=== PATIENT | female | born 1960 | race Caucasian/White ===

== ENCOUNTER 2022-04-23 13:21 | Inpatient (IN) | payer OTHER ==
[2022-04-23 14:17] VITALS: BMI 25.6
[2022-04-23] MEDS ORDERED: NALOXONE HCL (KLOXXADO) 8 MG SPRAY NS PRN (16:23)
[2022-04-23] MEDS ORDERED: LOPERAMIDE HCL 2 MG CAPSULE PO PRN (16:23)
[2022-04-23] MEDS ORDERED: IBUPROFEN 400 MG TABLET (FP) PO PRN (16:23)
[2022-04-23] MEDS ORDERED: cloNIDine HCL 0.1 MG TABLET PO PRN (16:23)
[2022-04-23] MEDS ORDERED: POLYETHYLENE GLYCOL (HEALTHYLAX) 3350 17 GM PACKET PO PRN (16:23)
[2022-04-23] MEDS ORDERED: BISMUTH SUBSALICYLATE 524 MG/30 ML PO PRN (16:23)
[2022-04-23] MEDS ORDERED: MAGNESIUM HYDROX 2400MG/30ML ORAL SUSPENSION 30 ML CUP PO PRN (16:23)
[2022-04-23] MEDS ORDERED: ONDANSETRON *ODT* 4 MG TABLET SL PRN (16:23)
[2022-04-23] MEDS ORDERED: ACETAMINOPHEN 325 MG TABLET (FP) PO PRN ×2 (16:23)
[2022-04-23] MEDS ORDERED: DICYCLOMINE HCL 10 MG CAPSULE PO PRN (16:23)
[2022-04-23] MEDS ORDERED: BENZOCAINE/MENTHOL (CHLORASEPTIC ) LOZENGE MM PRN (16:23)
[2022-04-23] MEDS ORDERED: MAG HYDROX/AL HYDROX/SIMETH 30 ML UNIT-DOSE CUP PO PRN (16:23)
[2022-04-23] MEDS ORDERED: methaDONE HCL 10 MG TABLET (FOR DETOX USE ONLY) PO ONE (16:30)
[2022-04-23] MEDS ORDERED: methaDONE HCL 10 MG TABLET (FOR DETOX USE ONLY) ONE (16:46)
[2022-04-23] MEDS: NICOTINE 10 MG CARTRIDGE (INHALER) IH PRN ×2 (18:23→23:19)
[2022-04-23] MEDS ORDERED: MELATONIN 5 MG TABLETS PO SCH (22:00)
[2022-04-23] MEDS: THIAMINE HCL 100 MG TABLET (FP) PO SCH (22:44)
[2022-04-23] MEDS: hydrOXYzine PAMOATE 25 MG CAPSULE (FP) PO PRN (22:45)
[2022-04-23] MEDS: IBUPROFEN 600 MG TABLET (FP) PO PRN (22:45)
[2022-04-24] MEDS: NICOTINE 10 MG CARTRIDGE (INHALER) IH PRN ×3 (10:23→22:25)
[2022-04-24] MEDS: PRENATAL VITAMINS W/ FOLIC ACID TABLET (FP) PO SCH (10:23)
[2022-04-24] MEDS: IBUPROFEN 600 MG TABLET (FP) PO PRN (10:24)
[2022-04-24 13:54] LABS: HEMATOCRIT 37.8 % (32.4-45.2); HEMOGLOBIN 13.2 GM/dL (10.7-15.3); MCH 29.9 pg (25.7-33.7); MCHC 34.8 g/dl (32.0-36.0); MEAN CELL VOLUME 85.8 fl (80-96); MEAN PLT VOLUME 10.3 fl (7.5-11.1); PLATELET COUNT 77 10^3/uL (134-434); RBC 4.41 M/mm3 (3.60-5.2); RDW 15.7 % (11.6-15.6); WHITE BLOOD COUNT 3.9 K/mm3 (4.0-10.0)
[2022-04-24 14:41] LABS: CALCIUM 8.3 mg/dL (8.5-10.1)
[2022-04-24 14:42] LABS: ALBUMIN 3.3 g/dl (3.4-5.0); BLOOD UREA NITROGEN 18.6 mg/dL (7-18)
[2022-04-24 14:47] LABS: BILIRUBIN,TOTAL 0.4 mg/dL (0.2-1); TOT PROT 6.3 g/dl (6.4-8.2)
[2022-04-24] MEDS: MELATONIN 5 MG TABLETS PO SCH (22:24)
[2022-04-24] MEDS: THIAMINE HCL 100 MG TABLET (FP) PO SCH (22:24)
[2022-04-25] MEDS ORDERED: methaDONE HCL 10 MG TABLET (FOR DETOX USE ONLY) PO ONE (10:00)
[2022-04-25] MEDS: NICOTINE 10 MG CARTRIDGE (INHALER) IH PRN ×3 (10:18→22:28)
[2022-04-25] MEDS: METHOCARBAMOL 500 MG TABLET PO PRN (10:19)
[2022-04-25] MEDS: PRENATAL VITAMINS W/ FOLIC ACID TABLET (FP) PO SCH (10:19)
[2022-04-25] MEDS: MELATONIN 5 MG TABLETS PO SCH (22:26)
[2022-04-25] MEDS: THIAMINE HCL 100 MG TABLET (FP) PO SCH (22:27)
[2022-04-25] MEDS: hydrOXYzine PAMOATE 25 MG CAPSULE (FP) PO PRN (22:28)
[2022-04-26] MEDS: NICOTINE 10 MG CARTRIDGE (INHALER) IH PRN ×4 (05:32→22:16)
[2022-04-26] MEDS: PRENATAL VITAMINS W/ FOLIC ACID TABLET (FP) PO SCH (10:23)
[2022-04-26] MEDS: MELATONIN 5 MG TABLETS PO SCH (22:15)
[2022-04-26] MEDS: THIAMINE HCL 100 MG TABLET (FP) PO SCH (22:16)
[2022-04-26] MEDS: METHOCARBAMOL 500 MG TABLET PO PRN (22:16)
[2022-04-27] MEDS: NICOTINE 10 MG CARTRIDGE (INHALER) IH PRN ×3 (08:27→22:11)
[2022-04-27] MEDS ORDERED: methaDONE HCL 10 MG TABLET (FOR DETOX USE ONLY) PO ONE (10:00)
[2022-04-27] MEDS: PRENATAL VITAMINS W/ FOLIC ACID TABLET (FP) PO SCH (10:36)
[2022-04-27] MEDS: THIAMINE HCL 100 MG TABLET (FP) PO SCH (22:11)
[2022-04-27] MEDS: MELATONIN 5 MG TABLETS PO SCH (22:11)
[2022-04-28] MEDS: NICOTINE 10 MG CARTRIDGE (INHALER) IH PRN ×2 (05:30→12:21)
[2022-04-28 06:51] VITALS: RESP 16
[2022-04-28 10:36] VITALS: BP 107/57; PULSE 9; TEMP 98
[2022-04-28] MEDS: PRENATAL VITAMINS W/ FOLIC ACID TABLET (FP) PO SCH (10:36)
== END 2022-04-28 13:16 | disposition other institution (70) | DRG 773 ==
LOC: YASAS 13:21 → Y6N 16:22
PROVIDERS: ADMIT Allergy & Immunology; ATTEND Surgery
PROC: HZ2ZZZZ Detoxification Services for Substance Abuse Treatment (ICD-10-PCS; principal; 2022-04-23)
DX: F11.23 Opioid dependence with withdrawal (principal); F14.20 Cocaine dependence, uncomplicated; F17.210 Nicotine dependence, cigarettes, uncomplicated; F31.9 Bipolar disorder, unspecified; F19.282 Other psychoactive substance dependence with psychoactive substance-induced sleep disorder; F19.24 Other psychoactive substance dependence with psychoactive substance-induced mood disorder; Z62.810 Personal history of physical and sexual abuse in childhood; Z91.410 Personal history of adult physical and sexual abuse; Z86.69 Personal history of other diseases of the nervous system and sense organs; Z86.19 Personal history of other infectious and parasitic diseases; Z87.19 Personal history of other diseases of the digestive system; Z56.0 Unemployment, unspecified
CPT/HCPCS: 36415; 80053; 83036; 85027; 86780; 93005; 93010; C9803-CS; U0003; U0005

== ENCOUNTER 2022-04-28 13:22 | Inpatient (IN) | payer OTHER ==
[2022-04-28] MEDS ORDERED: P-EPHED 60MG/TRIPROLIDI 2.5MG TABLET PO PRN (14:37)
[2022-04-28] MEDS ORDERED: guaiFENesin 200 MG/10 ML 10 ML UNIT-DOSE CUPS PO PRN (14:37)
[2022-04-28] MEDS ORDERED: BENZOCAINE/MENTHOL (CHLORASEPTIC ) LOZENGE MM PRN (14:37)
[2022-04-28] MEDS ORDERED: POLYETHYLENE GLYCOL (HEALTHYLAX) 3350 17 GM PACKET PO PRN (14:37)
[2022-04-28] MEDS ORDERED: LOPERAMIDE HCL 2 MG CAPSULE PO PRN (14:37)
[2022-04-28] MEDS: AMMONIUM LACTATE 12% LOTION 225 GM BOTTLE TP SCH (17:21)
[2022-04-28] MEDS: NICOTINE 10 MG CARTRIDGE (INHALER) IH PRN (17:36)
[2022-04-28] MEDS: THIAMINE HCL 100 MG TABLET (FP) PO SCH (21:19)
[2022-04-28] MEDS: MELATONIN 5 MG TABLETS PO SCH (21:19)
[2022-04-28] MEDS: hydrOXYzine PAMOATE 25 MG CAPSULE (FP) PO PRN (21:20)
[2022-04-29] MEDS: PRENATAL VITAMINS W/ FOLIC ACID TABLET (FP) PO SCH (09:56)
[2022-04-29] MEDS: NICOTINE 10 MG CARTRIDGE (INHALER) IH PRN ×2 (09:56→19:12)
[2022-04-29] MEDS: NICOTINE 7 MG/24 HOURS TOPICAL PATCH TD SCH (09:57)
[2022-04-29] MEDS: AMMONIUM LACTATE 12% LOTION 225 GM BOTTLE TP SCH (09:59)
[2022-04-29] MEDS ORDERED: PNEUMOC 20-VAL CONJ-DIP CRM/PF 0.5 ML SYRINGE IM ONE (12:00)
[2022-04-29] MEDS ORDERED: FLU VACC QS2022-23(6MOS UP)/PF 60 MCG/0.5 ML SYRINGE IM ONE (12:00)
[2022-04-29] MEDS: THIAMINE HCL 100 MG TABLET (FP) PO SCH (22:03)
[2022-04-29] MEDS: MELATONIN 5 MG TABLETS PO SCH (22:03)
[2022-04-29] MEDS: hydrOXYzine PAMOATE 25 MG CAPSULE (FP) PO PRN (22:04)
[2022-04-30] MEDS: MAG HYDROX/AL HYDROX/SIMETH 30 ML UNIT-DOSE CUP PO PRN (06:44)
[2022-04-30] MEDS: NICOTINE 10 MG CARTRIDGE (INHALER) IH PRN ×2 (09:06→18:59)
[2022-04-30] MEDS: PRENATAL VITAMINS W/ FOLIC ACID TABLET (FP) PO SCH (10:08)
[2022-04-30] MEDS: QUEtiapine FUMARATE 25 MG TABLET PO SCH (10:08)
[2022-04-30] MEDS: hydrOXYzine PAMOATE 25 MG CAPSULE (FP) PO PRN ×2 (10:08→22:09)
[2022-04-30] MEDS: NICOTINE 7 MG/24 HOURS TOPICAL PATCH TD SCH (10:08)
[2022-04-30] MEDS: AMMONIUM LACTATE 12% LOTION 225 GM BOTTLE TP SCH (10:09)
[2022-04-30] MEDS: THIAMINE HCL 100 MG TABLET (FP) PO SCH (22:08)
[2022-04-30] MEDS: QUEtiapine FUMARATE 50 MG TABLET PO SCH (22:09)
[2022-04-30] MEDS: IBUPROFEN 400 MG TABLET (FP) PO PRN (23:33)
[2022-05-01] MEDS: ACETAMINOPHEN 325 MG TABLET (FP) PO PRN (00:30)
[2022-05-01] MEDS ORDERED: METHOCARBAMOL 500 MG TABLET PO ONE (02:32)
[2022-05-01] MEDS: NICOTINE 10 MG CARTRIDGE (INHALER) IH PRN ×3 (06:12→19:14)
[2022-05-01] MEDS: IBUPROFEN 400 MG TABLET (FP) PO PRN (06:13)
[2022-05-01] MEDS: NICOTINE 7 MG/24 HOURS TOPICAL PATCH TD SCH (10:21)
[2022-05-01] MEDS: PRENATAL VITAMINS W/ FOLIC ACID TABLET (FP) PO SCH (10:21)
[2022-05-01] MEDS: AMMONIUM LACTATE 12% LOTION 225 GM BOTTLE TP SCH (10:21)
[2022-05-01] MEDS: QUEtiapine FUMARATE 25 MG TABLET PO SCH (10:26)
[2022-05-01] MEDS ORDERED: MELATONIN 5 MG TABLETS PO PRN (11:06)
[2022-05-01] MEDS: hydrOXYzine PAMOATE 25 MG CAPSULE (FP) PO PRN ×2 (12:22→21:12)
[2022-05-01] MEDS: MELATONIN 5 MG TABLETS PO PRN (21:10)
[2022-05-01] MEDS: QUEtiapine FUMARATE 50 MG TABLET PO SCH (21:13)
[2022-05-01] MEDS: THIAMINE HCL 100 MG TABLET (FP) PO SCH (21:13)
[2022-05-02] MEDS: hydrOXYzine PAMOATE 25 MG CAPSULE (FP) PO PRN ×4 (03:55→21:22)
[2022-05-02] MEDS: IBUPROFEN 400 MG TABLET (FP) PO PRN (03:56)
[2022-05-02] MEDS: NICOTINE 10 MG CARTRIDGE (INHALER) IH PRN ×3 (07:02→19:41)
[2022-05-02] MEDS: PRENATAL VITAMINS W/ FOLIC ACID TABLET (FP) PO SCH (10:38)
[2022-05-02] MEDS: DIVALPROEX SODIUM 250 MG TABLET E.C. PO SCH ×2 (10:38→21:21)
[2022-05-02] MEDS: NICOTINE 7 MG/24 HOURS TOPICAL PATCH TD SCH (10:38)
[2022-05-02] MEDS: AMMONIUM LACTATE 12% LOTION 225 GM BOTTLE TP SCH (10:39)
[2022-05-02] MEDS: THIAMINE HCL 100 MG TABLET (FP) PO SCH (21:21)
[2022-05-02] MEDS: MELATONIN 5 MG TABLETS PO PRN (21:22)
[2022-05-02] MEDS ORDERED: traZODone HCL 50 MG TABLET (FP) PO SCH (22:00)
[2022-05-03] MEDS: hydrOXYzine PAMOATE 25 MG CAPSULE (FP) PO PRN ×4 (06:42→21:09)
[2022-05-03] MEDS: PRENATAL VITAMINS W/ FOLIC ACID TABLET (FP) PO SCH (10:28)
[2022-05-03] MEDS: DIVALPROEX SODIUM 250 MG TABLET E.C. PO SCH ×2 (10:28→21:08)
[2022-05-03] MEDS: NICOTINE 7 MG/24 HOURS TOPICAL PATCH TD SCH (10:29)
[2022-05-03] MEDS: NICOTINE 10 MG CARTRIDGE (INHALER) IH PRN ×2 (10:30→21:10)
[2022-05-03] MEDS: AMMONIUM LACTATE 12% LOTION 225 GM BOTTLE TP SCH (10:30)
[2022-05-03] MEDS: MAG HYDROX/AL HYDROX/SIMETH 30 ML UNIT-DOSE CUP PO PRN (11:00)
[2022-05-03] MEDS: THIAMINE HCL 100 MG TABLET (FP) PO SCH (21:08)
[2022-05-03] MEDS: MELATONIN 5 MG TABLETS PO PRN (21:09)
[2022-05-03] MEDS ORDERED: traZODone HCL 100 MG TABLET (FP) PO SCH (22:00)
[2022-05-04] MEDS: hydrOXYzine PAMOATE 25 MG CAPSULE (FP) PO PRN ×3 (06:36→21:16)
[2022-05-04] MEDS: PRENATAL VITAMINS W/ FOLIC ACID TABLET (FP) PO SCH (10:50)
[2022-05-04] MEDS: DIVALPROEX SODIUM 250 MG TABLET E.C. PO SCH ×2 (10:50→21:16)
[2022-05-04] MEDS: NICOTINE 10 MG CARTRIDGE (INHALER) IH PRN ×2 (10:52→19:19)
[2022-05-04] MEDS: AMMONIUM LACTATE 12% LOTION 225 GM BOTTLE TP SCH (10:53)
[2022-05-04] MEDS: NICOTINE 7 MG/24 HOURS TOPICAL PATCH TD SCH (10:53)
[2022-05-04] MEDS: busPIRone HCL 5 MG TABLET PO SCH ×2 (14:13→21:16)
[2022-05-04] MEDS ORDERED: BUPRENORPHINE/NALOXONE 2 MG/0.5 MG FILM PACKET SL ONE (15:26)
[2022-05-04] MEDS: COLLOIDAL OATMEAL 1 BAR EACH TP PRN (16:08)
[2022-05-04] MEDS: traZODone HCL 50 MG TABLET (FP) PO SCH (21:16)
[2022-05-04] MEDS: THIAMINE HCL 100 MG TABLET (FP) PO SCH (21:16)
[2022-05-04] MEDS: MELATONIN 5 MG TABLETS PO PRN (21:18)
[2022-05-05] MEDS: busPIRone HCL 5 MG TABLET PO SCH ×3 (07:14→21:15)
[2022-05-05] MEDS: hydrOXYzine PAMOATE 25 MG CAPSULE (FP) PO PRN ×2 (07:14→21:16)
[2022-05-05] MEDS: NICOTINE 10 MG CARTRIDGE (INHALER) IH PRN ×2 (07:15→20:20)
[2022-05-05] MEDS ORDERED: BUPRENORPHINE/NALOXONE 2 MG/0.5 MG FILM PACKET SL SCH (10:00)
[2022-05-05] MEDS: PRENATAL VITAMINS W/ FOLIC ACID TABLET (FP) PO SCH (10:17)
[2022-05-05] MEDS: DIVALPROEX SODIUM 250 MG TABLET E.C. PO SCH ×2 (10:17→21:15)
[2022-05-05] MEDS: NICOTINE 7 MG/24 HOURS TOPICAL PATCH TD SCH (10:17)
[2022-05-05] MEDS: AMMONIUM LACTATE 12% LOTION 225 GM BOTTLE TP SCH (10:20)
[2022-05-05] MEDS: traZODone HCL 50 MG TABLET (FP) PO SCH (21:14)
[2022-05-05] MEDS: THIAMINE HCL 100 MG TABLET (FP) PO SCH (21:15)
[2022-05-06] MEDS: busPIRone HCL 5 MG TABLET PO SCH ×3 (07:19→22:25)
[2022-05-06] MEDS: NICOTINE 10 MG CARTRIDGE (INHALER) IH PRN ×3 (07:19→22:26)
[2022-05-06] MEDS: hydrOXYzine PAMOATE 25 MG CAPSULE (FP) PO PRN ×2 (07:20→22:25)
[2022-05-06] MEDS: BUPRENORPHINE/NALOXONE 2 MG/0.5 MG FILM PACKET SL SCH (07:20)
[2022-05-06] MEDS: PRENATAL VITAMINS W/ FOLIC ACID TABLET (FP) PO SCH (10:55)
[2022-05-06] MEDS: DIVALPROEX SODIUM 250 MG TABLET E.C. PO SCH ×2 (10:55→22:24)
[2022-05-06] MEDS: NICOTINE 7 MG/24 HOURS TOPICAL PATCH TD SCH (10:56)
[2022-05-06] MEDS: AMMONIUM LACTATE 12% LOTION 225 GM BOTTLE TP SCH (10:57)
[2022-05-06] MEDS: traZODone HCL 50 MG TABLET (FP) PO SCH (22:23)
[2022-05-06] MEDS: THIAMINE HCL 100 MG TABLET (FP) PO SCH (22:24)
[2022-05-07] MEDS: busPIRone HCL 5 MG TABLET PO SCH ×3 (06:54→23:06)
[2022-05-07] MEDS: hydrOXYzine PAMOATE 25 MG CAPSULE (FP) PO PRN ×2 (06:54→22:09)
[2022-05-07] MEDS: BUPRENORPHINE/NALOXONE 2 MG/0.5 MG FILM PACKET SL SCH (06:54)
[2022-05-07] MEDS: AMMONIUM LACTATE 12% LOTION 225 GM BOTTLE TP SCH (09:49)
[2022-05-07] MEDS: PRENATAL VITAMINS W/ FOLIC ACID TABLET (FP) PO SCH (09:50)
[2022-05-07] MEDS: NICOTINE 7 MG/24 HOURS TOPICAL PATCH TD SCH (09:50)
[2022-05-07] MEDS: DIVALPROEX SODIUM 250 MG TABLET E.C. PO SCH ×2 (09:50→22:08)
[2022-05-07] MEDS: NICOTINE 10 MG CARTRIDGE (INHALER) IH PRN ×2 (14:06→22:08)
[2022-05-07] MEDS: MELATONIN 5 MG TABLETS PO PRN (22:08)
[2022-05-07] MEDS: traZODone HCL 50 MG TABLET (FP) PO SCH (22:08)
[2022-05-07] MEDS: THIAMINE HCL 100 MG TABLET (FP) PO SCH (22:08)
[2022-05-08] MEDS: hydrOXYzine PAMOATE 25 MG CAPSULE (FP) PO PRN ×3 (07:07→21:14)
[2022-05-08] MEDS: busPIRone HCL 5 MG TABLET PO SCH ×3 (07:07→21:14)
[2022-05-08] MEDS: BUPRENORPHINE/NALOXONE 2 MG/0.5 MG FILM PACKET SL SCH (07:07)
[2022-05-08] MEDS: DIVALPROEX SODIUM 250 MG TABLET E.C. PO SCH ×2 (10:31→21:13)
[2022-05-08] MEDS: NICOTINE 7 MG/24 HOURS TOPICAL PATCH TD SCH (10:31)
[2022-05-08] MEDS: PRENATAL VITAMINS W/ FOLIC ACID TABLET (FP) PO SCH (10:31)
[2022-05-08] MEDS: NICOTINE 10 MG CARTRIDGE (INHALER) IH PRN (10:32)
[2022-05-08] MEDS: AMMONIUM LACTATE 12% LOTION 225 GM BOTTLE TP SCH (10:33)
[2022-05-08] MEDS: traZODone HCL 50 MG TABLET (FP) PO SCH (21:12)
[2022-05-08] MEDS: THIAMINE HCL 100 MG TABLET (FP) PO SCH (21:14)
[2022-05-09] MEDS: HYDROCORTISONE 1% TOPICAL CREAM 30 GM TUBE TP PRN ×2 (06:12→10:38)
[2022-05-09] MEDS: hydrOXYzine PAMOATE 25 MG CAPSULE (FP) PO PRN ×2 (06:13→10:37)
[2022-05-09] MEDS: BUPRENORPHINE/NALOXONE 2 MG/0.5 MG FILM PACKET SL SCH (06:13)
[2022-05-09] MEDS: busPIRone HCL 5 MG TABLET PO SCH ×3 (06:14→21:12)
[2022-05-09] MEDS: DIVALPROEX SODIUM 250 MG TABLET E.C. PO SCH ×2 (10:37→21:15)
[2022-05-09] MEDS: PRENATAL VITAMINS W/ FOLIC ACID TABLET (FP) PO SCH (10:37)
[2022-05-09] MEDS: NICOTINE 7 MG/24 HOURS TOPICAL PATCH TD SCH (10:38)
[2022-05-09] MEDS: NICOTINE 10 MG CARTRIDGE (INHALER) IH PRN (10:39)
[2022-05-09] MEDS: AMMONIUM LACTATE 12% LOTION 225 GM BOTTLE TP SCH (10:44)
[2022-05-09] MEDS: THIAMINE HCL 100 MG TABLET (FP) PO SCH (21:11)
[2022-05-09] MEDS: MELATONIN 5 MG TABLETS PO PRN (21:12)
[2022-05-09] MEDS: traZODone HCL 50 MG TABLET (FP) PO SCH (21:12)
[2022-05-10] MEDS: BUPRENORPHINE/NALOXONE 2 MG/0.5 MG FILM PACKET SL SCH (06:14)
[2022-05-10] MEDS: DIVALPROEX SODIUM 250 MG TABLET E.C. PO SCH ×2 (06:14→21:42)
[2022-05-10] MEDS: busPIRone HCL 5 MG TABLET PO SCH ×3 (06:14→21:39)
[2022-05-10] MEDS: hydrOXYzine PAMOATE 25 MG CAPSULE (FP) PO PRN ×2 (06:16→09:52)
[2022-05-10] MEDS: PRENATAL VITAMINS W/ FOLIC ACID TABLET (FP) PO SCH (09:51)
[2022-05-10] MEDS: NICOTINE 7 MG/24 HOURS TOPICAL PATCH TD SCH (09:52)
[2022-05-10] MEDS: AMMONIUM LACTATE 12% LOTION 225 GM BOTTLE TP SCH (09:53)
[2022-05-10] MEDS: NICOTINE 10 MG CARTRIDGE (INHALER) IH PRN ×2 (09:53→21:37)
[2022-05-10] MEDS: HYDROCORTISONE 1% TOPICAL CREAM 30 GM TUBE TP PRN (09:54)
[2022-05-10] MEDS: METHOCARBAMOL 500 MG TABLET PO PRN ×2 (14:57→21:38)
[2022-05-10] MEDS: traZODone HCL 50 MG TABLET (FP) PO SCH (21:39)
[2022-05-10] MEDS: THIAMINE HCL 100 MG TABLET (FP) PO SCH (21:39)
[2022-05-11] MEDS: busPIRone HCL 5 MG TABLET PO SCH ×3 (06:42→21:28)
[2022-05-11] MEDS: BUPRENORPHINE/NALOXONE 2 MG/0.5 MG FILM PACKET SL SCH (06:42)
[2022-05-11] MEDS: NICOTINE 10 MG CARTRIDGE (INHALER) IH PRN ×2 (06:42→21:35)
[2022-05-11] MEDS: DIVALPROEX SODIUM 250 MG TABLET E.C. PO SCH ×2 (06:42→21:28)
[2022-05-11] MEDS: PRENATAL VITAMINS W/ FOLIC ACID TABLET (FP) PO SCH (10:24)
[2022-05-11] MEDS: METHOCARBAMOL 500 MG TABLET PO PRN ×2 (10:25→21:29)
[2022-05-11] MEDS: AMMONIUM LACTATE 12% LOTION 225 GM BOTTLE TP SCH (10:25)
[2022-05-11] MEDS: HYDROCORTISONE 1% TOPICAL CREAM 30 GM TUBE TP PRN (10:25)
[2022-05-11] MEDS: NICOTINE 7 MG/24 HOURS TOPICAL PATCH TD SCH (10:27)
[2022-05-11] MEDS: traZODone HCL 50 MG TABLET (FP) PO SCH (21:27)
[2022-05-11] MEDS: THIAMINE HCL 100 MG TABLET (FP) PO SCH (21:27)
[2022-05-11] MEDS: hydrOXYzine PAMOATE 25 MG CAPSULE (FP) PO PRN (21:29)
[2022-05-11] MEDS: MELATONIN 5 MG TABLETS PO PRN (21:34)
[2022-05-12] MEDS: busPIRone HCL 5 MG TABLET PO SCH ×3 (06:40→21:17)
[2022-05-12] MEDS: DIVALPROEX SODIUM 250 MG TABLET E.C. PO SCH ×2 (06:40→21:43)
[2022-05-12] MEDS: BUPRENORPHINE/NALOXONE 2 MG/0.5 MG FILM PACKET SL SCH (06:40)
[2022-05-12] MEDS: METHOCARBAMOL 500 MG TABLET PO PRN ×2 (06:42→21:19)
[2022-05-12] MEDS: NICOTINE 7 MG/24 HOURS TOPICAL PATCH TD SCH (10:18)
[2022-05-12] MEDS: AMMONIUM LACTATE 12% LOTION 225 GM BOTTLE TP SCH (10:18)
[2022-05-12] MEDS: PRENATAL VITAMINS W/ FOLIC ACID TABLET (FP) PO SCH (10:18)
[2022-05-12] MEDS: THIAMINE HCL 100 MG TABLET (FP) PO SCH (21:17)
[2022-05-12] MEDS: traZODone HCL 50 MG TABLET (FP) PO SCH (21:17)
[2022-05-12] MEDS: hydrOXYzine PAMOATE 25 MG CAPSULE (FP) PO PRN (21:17)
[2022-05-12] MEDS: MELATONIN 5 MG TABLETS PO PRN (21:19)
[2022-05-13] MEDS: DIVALPROEX SODIUM 250 MG TABLET E.C. PO SCH ×2 (05:58→22:06)
[2022-05-13] MEDS: busPIRone HCL 5 MG TABLET PO SCH ×3 (05:58→21:47)
[2022-05-13] MEDS: BUPRENORPHINE/NALOXONE 2 MG/0.5 MG FILM PACKET SL SCH (05:58)
[2022-05-13] MEDS: NICOTINE 7 MG/24 HOURS TOPICAL PATCH TD SCH (10:06)
[2022-05-13] MEDS: hydrOXYzine PAMOATE 25 MG CAPSULE (FP) PO PRN ×2 (10:06→21:47)
[2022-05-13] MEDS: PRENATAL VITAMINS W/ FOLIC ACID TABLET (FP) PO SCH (10:06)
[2022-05-13] MEDS: AMMONIUM LACTATE 12% LOTION 225 GM BOTTLE TP SCH (10:06)
[2022-05-13] MEDS: traZODone HCL 50 MG TABLET (FP) PO SCH (21:46)
[2022-05-13] MEDS: THIAMINE HCL 100 MG TABLET (FP) PO SCH (21:46)
[2022-05-13] MEDS: METHOCARBAMOL 500 MG TABLET PO PRN (21:47)
[2022-05-13] MEDS: NICOTINE 10 MG CARTRIDGE (INHALER) IH PRN (21:48)
[2022-05-13] MEDS: MELATONIN 5 MG TABLETS PO PRN (21:48)
[2022-05-14] MEDS: busPIRone HCL 5 MG TABLET PO SCH ×3 (06:57→21:50)
[2022-05-14] MEDS: DIVALPROEX SODIUM 250 MG TABLET E.C. PO SCH ×2 (06:57→21:52)
[2022-05-14] MEDS: BUPRENORPHINE/NALOXONE 2 MG/0.5 MG FILM PACKET SL SCH (06:57)
[2022-05-14] MEDS: PRENATAL VITAMINS W/ FOLIC ACID TABLET (FP) PO SCH (09:47)
[2022-05-14] MEDS: NICOTINE 7 MG/24 HOURS TOPICAL PATCH TD SCH (09:47)
[2022-05-14] MEDS: HYDROCORTISONE 1% TOPICAL CREAM 30 GM TUBE TP PRN (09:48)
[2022-05-14] MEDS: AMMONIUM LACTATE 12% LOTION 225 GM BOTTLE TP SCH (09:49)
[2022-05-14] MEDS: NICOTINE 10 MG CARTRIDGE (INHALER) IH PRN (14:22)
[2022-05-14] MEDS: METHOCARBAMOL 500 MG TABLET PO PRN (21:49)
[2022-05-14] MEDS: THIAMINE HCL 100 MG TABLET (FP) PO SCH (21:50)
[2022-05-14] MEDS: hydrOXYzine PAMOATE 25 MG CAPSULE (FP) PO PRN (21:50)
[2022-05-14] MEDS: traZODone HCL 50 MG TABLET (FP) PO SCH (21:50)
[2022-05-14] MEDS: MELATONIN 5 MG TABLETS PO PRN (21:52)
[2022-05-15] MEDS: busPIRone HCL 5 MG TABLET PO SCH ×3 (06:41→21:22)
[2022-05-15] MEDS: DIVALPROEX SODIUM 250 MG TABLET E.C. PO SCH ×2 (06:42→21:23)
[2022-05-15] MEDS: BUPRENORPHINE/NALOXONE 2 MG/0.5 MG FILM PACKET SL SCH (06:42)
[2022-05-15] MEDS: NICOTINE 10 MG CARTRIDGE (INHALER) IH PRN (06:44)
[2022-05-15] MEDS: PRENATAL VITAMINS W/ FOLIC ACID TABLET (FP) PO SCH (10:23)
[2022-05-15] MEDS: NICOTINE 7 MG/24 HOURS TOPICAL PATCH TD SCH (10:24)
[2022-05-15] MEDS: HYDROCORTISONE 1% TOPICAL CREAM 30 GM TUBE TP PRN (10:25)
[2022-05-15] MEDS: AMMONIUM LACTATE 12% LOTION 225 GM BOTTLE TP SCH (10:25)
[2022-05-15] MEDS: HYDROCHLOROTHIAZIDE 25 MG TABLET (FP) PO SCH (14:44)
[2022-05-15] MEDS: traZODone HCL 50 MG TABLET (FP) PO SCH (21:21)
[2022-05-15] MEDS: THIAMINE HCL 100 MG TABLET (FP) PO SCH (21:22)
[2022-05-15] MEDS: MELATONIN 5 MG TABLETS PO PRN (21:24)
[2022-05-15] MEDS: METHOCARBAMOL 500 MG TABLET PO PRN (22:45)
[2022-05-15] MEDS: hydrOXYzine PAMOATE 25 MG CAPSULE (FP) PO PRN (22:45)
[2022-05-16] MEDS: BUPRENORPHINE/NALOXONE 2 MG/0.5 MG FILM PACKET SL SCH (06:55)
[2022-05-16] MEDS: DIVALPROEX SODIUM 250 MG TABLET E.C. PO SCH ×2 (06:55→21:03)
[2022-05-16] MEDS: busPIRone HCL 5 MG TABLET PO SCH ×3 (06:55→21:03)
[2022-05-16] MEDS: PRENATAL VITAMINS W/ FOLIC ACID TABLET (FP) PO SCH (10:26)
[2022-05-16] MEDS: NICOTINE 7 MG/24 HOURS TOPICAL PATCH TD SCH (10:26)
[2022-05-16] MEDS: HYDROCHLOROTHIAZIDE 25 MG TABLET (FP) PO SCH (10:26)
[2022-05-16] MEDS: AMMONIUM LACTATE 12% LOTION 225 GM BOTTLE TP SCH (10:26)
[2022-05-16] MEDS: THIAMINE HCL 100 MG TABLET (FP) PO SCH (21:03)
[2022-05-16] MEDS: traZODone HCL 50 MG TABLET (FP) PO SCH (21:03)
[2022-05-16] MEDS: hydrOXYzine PAMOATE 25 MG CAPSULE (FP) PO PRN (22:03)
[2022-05-16] MEDS: MELATONIN 5 MG TABLETS PO PRN (22:03)
[2022-05-16] MEDS: METHOCARBAMOL 500 MG TABLET PO PRN (22:03)
[2022-05-17] MEDS: busPIRone HCL 5 MG TABLET PO SCH ×3 (05:57→23:54)
[2022-05-17] MEDS: DIVALPROEX SODIUM 250 MG TABLET E.C. PO SCH ×2 (05:58→23:54)
[2022-05-17] MEDS: BUPRENORPHINE/NALOXONE 2 MG/0.5 MG FILM PACKET SL SCH (05:58)
[2022-05-17] MEDS: PRENATAL VITAMINS W/ FOLIC ACID TABLET (FP) PO SCH (09:46)
[2022-05-17] MEDS: HYDROCHLOROTHIAZIDE 25 MG TABLET (FP) PO SCH (09:47)
[2022-05-17] MEDS: ACETAMINOPHEN 325 MG TABLET (FP) PO PRN (09:47)
[2022-05-17] MEDS: NICOTINE 7 MG/24 HOURS TOPICAL PATCH TD SCH (09:47)
[2022-05-17] MEDS: AMMONIUM LACTATE 12% LOTION 225 GM BOTTLE TP SCH (09:47)
[2022-05-17] MEDS: traZODone HCL 50 MG TABLET (FP) PO SCH (23:54)
[2022-05-17] MEDS: THIAMINE HCL 100 MG TABLET (FP) PO SCH (23:54)
[2022-05-18] MEDS: METHOCARBAMOL 500 MG TABLET PO PRN (02:07)
[2022-05-18] MEDS: hydrOXYzine PAMOATE 25 MG CAPSULE (FP) PO PRN (02:07)
[2022-05-18] MEDS: MELATONIN 5 MG TABLETS PO PRN ×2 (02:09→22:16)
[2022-05-18] MEDS: BUPRENORPHINE/NALOXONE 2 MG/0.5 MG FILM PACKET SL SCH (06:42)
[2022-05-18] MEDS: busPIRone HCL 5 MG TABLET PO SCH ×3 (06:43→22:12)
[2022-05-18] MEDS: DIVALPROEX SODIUM 250 MG TABLET E.C. PO SCH ×2 (06:43→22:14)
[2022-05-18] MEDS: CEPHALEXIN MONOHYDRATE 500 MG CAPSULE (UD) PO SCH ×2 (09:46→22:13)
[2022-05-18] MEDS: NICOTINE 7 MG/24 HOURS TOPICAL PATCH TD SCH (09:46)
[2022-05-18] MEDS: PRENATAL VITAMINS W/ FOLIC ACID TABLET (FP) PO SCH (09:46)
[2022-05-18] MEDS: AMMONIUM LACTATE 12% LOTION 225 GM BOTTLE TP SCH (09:47)
[2022-05-18] MEDS: NICOTINE 10 MG CARTRIDGE (INHALER) IH PRN (09:48)
[2022-05-18] MEDS: THIAMINE HCL 100 MG TABLET (FP) PO SCH (22:13)
[2022-05-18] MEDS: traZODone HCL 50 MG TABLET (FP) PO SCH (22:13)
[2022-05-18] MEDS: MAG HYDROX/AL HYDROX/SIMETH 30 ML UNIT-DOSE CUP PO PRN (22:15)
[2022-05-19] MEDS: METHOCARBAMOL 500 MG TABLET PO PRN ×2 (01:57→21:19)
[2022-05-19] MEDS: busPIRone HCL 5 MG TABLET PO SCH ×3 (06:11→21:18)
[2022-05-19] MEDS: BUPRENORPHINE/NALOXONE 2 MG/0.5 MG FILM PACKET SL SCH (06:12)
[2022-05-19] MEDS: DIVALPROEX SODIUM 250 MG TABLET E.C. PO SCH ×2 (06:12→21:17)
[2022-05-19] MEDS: PRENATAL VITAMINS W/ FOLIC ACID TABLET (FP) PO SCH (09:55)
[2022-05-19] MEDS: CEPHALEXIN MONOHYDRATE 500 MG CAPSULE (UD) PO SCH ×2 (09:56→21:17)
[2022-05-19] MEDS: AMMONIUM LACTATE 12% LOTION 225 GM BOTTLE TP SCH (09:56)
[2022-05-19] MEDS: NICOTINE 7 MG/24 HOURS TOPICAL PATCH TD SCH (09:56)
[2022-05-19] MEDS: traZODone HCL 50 MG TABLET (FP) PO SCH (21:17)
[2022-05-19] MEDS: hydrOXYzine PAMOATE 25 MG CAPSULE (FP) PO PRN (21:17)
[2022-05-19] MEDS: THIAMINE HCL 100 MG TABLET (FP) PO SCH (21:17)
[2022-05-19] MEDS: ACETAMINOPHEN 325 MG TABLET (FP) PO PRN (21:18)
[2022-05-19] MEDS: MELATONIN 5 MG TABLETS PO PRN (21:22)
[2022-05-19] MEDS: MAG HYDROX/AL HYDROX/SIMETH 30 ML UNIT-DOSE CUP PO PRN (22:32)
[2022-05-20] MEDS: DIVALPROEX SODIUM 250 MG TABLET E.C. PO SCH ×2 (06:47→21:58)
[2022-05-20] MEDS: busPIRone HCL 5 MG TABLET PO SCH ×3 (06:47→21:58)
[2022-05-20] MEDS: NICOTINE 10 MG CARTRIDGE (INHALER) IH PRN ×4 (06:48→21:57)
[2022-05-20] MEDS: BUPRENORPHINE/NALOXONE 2 MG/0.5 MG FILM PACKET SL SCH (06:49)
[2022-05-20] MEDS: PRENATAL VITAMINS W/ FOLIC ACID TABLET (FP) PO SCH (10:38)
[2022-05-20] MEDS: NICOTINE 7 MG/24 HOURS TOPICAL PATCH TD SCH (10:38)
[2022-05-20] MEDS: CEPHALEXIN MONOHYDRATE 500 MG CAPSULE (UD) PO SCH ×2 (10:38→21:58)
[2022-05-20] MEDS: AMMONIUM LACTATE 12% LOTION 225 GM BOTTLE TP SCH (10:39)
[2022-05-20] MEDS: COLLOIDAL OATMEAL 1 BAR EACH TP PRN (10:40)
[2022-05-20] MEDS: traZODone HCL 50 MG TABLET (FP) PO SCH (21:58)
[2022-05-20] MEDS: METHOCARBAMOL 500 MG TABLET PO PRN (21:58)
[2022-05-20] MEDS: THIAMINE HCL 100 MG TABLET (FP) PO SCH (21:58)
[2022-05-21] MEDS: MELATONIN 5 MG TABLETS PO PRN (01:07)
[2022-05-21] MEDS: busPIRone HCL 5 MG TABLET PO SCH ×3 (06:57→21:38)
[2022-05-21] MEDS: DIVALPROEX SODIUM 250 MG TABLET E.C. PO SCH ×2 (06:57→21:38)
[2022-05-21] MEDS: BUPRENORPHINE/NALOXONE 2 MG/0.5 MG FILM PACKET SL SCH (06:57)
[2022-05-21] MEDS: NICOTINE 7 MG/24 HOURS TOPICAL PATCH TD SCH (10:13)
[2022-05-21] MEDS: PRENATAL VITAMINS W/ FOLIC ACID TABLET (FP) PO SCH (10:13)
[2022-05-21] MEDS: AMMONIUM LACTATE 12% LOTION 225 GM BOTTLE TP SCH (10:14)
[2022-05-21] MEDS: CEPHALEXIN MONOHYDRATE 500 MG CAPSULE (UD) PO SCH ×2 (10:14→21:38)
[2022-05-21] MEDS: NICOTINE 10 MG CARTRIDGE (INHALER) IH PRN (10:14)
[2022-05-21] MEDS: METHOCARBAMOL 500 MG TABLET PO PRN (21:37)
[2022-05-21] MEDS: traZODone HCL 50 MG TABLET (FP) PO SCH (21:37)
[2022-05-21] MEDS: THIAMINE HCL 100 MG TABLET (FP) PO SCH (21:37)
[2022-05-21] MEDS: hydrOXYzine PAMOATE 25 MG CAPSULE (FP) PO PRN (21:41)
[2022-05-22] MEDS: DIVALPROEX SODIUM 250 MG TABLET E.C. PO SCH ×2 (06:42→21:39)
[2022-05-22] MEDS: busPIRone HCL 5 MG TABLET PO SCH ×3 (06:42→21:39)
[2022-05-22] MEDS: BUPRENORPHINE/NALOXONE 2 MG/0.5 MG FILM PACKET SL SCH (06:42)
[2022-05-22] MEDS: NICOTINE 10 MG CARTRIDGE (INHALER) IH PRN (09:50)
[2022-05-22] MEDS: PRENATAL VITAMINS W/ FOLIC ACID TABLET (FP) PO SCH (09:50)
[2022-05-22] MEDS: NICOTINE 7 MG/24 HOURS TOPICAL PATCH TD SCH (09:50)
[2022-05-22] MEDS: CEPHALEXIN MONOHYDRATE 500 MG CAPSULE (UD) PO SCH ×2 (09:50→21:39)
[2022-05-22] MEDS: HYDROCORTISONE 1% TOPICAL CREAM 30 GM TUBE TP PRN (09:50)
[2022-05-22] MEDS: hydrOXYzine PAMOATE 25 MG CAPSULE (FP) PO PRN (09:51)
[2022-05-22] MEDS: AMMONIUM LACTATE 12% LOTION 225 GM BOTTLE TP SCH (09:54)
[2022-05-22] MEDS: LIDOCAINE 5% TOPICAL PATCH TP SCH (12:04)
[2022-05-22] MEDS: traZODone HCL 50 MG TABLET (FP) PO SCH (21:39)
[2022-05-22] MEDS: LIDOCAINE PATCH REMOVAL MC SCH (21:39)
[2022-05-22] MEDS: THIAMINE HCL 100 MG TABLET (FP) PO SCH (21:39)
[2022-05-22] MEDS: MELATONIN 5 MG TABLETS PO PRN (22:44)
[2022-05-22] MEDS: METHOCARBAMOL 500 MG TABLET PO PRN (22:44)
[2022-05-23] MEDS: busPIRone HCL 5 MG TABLET PO SCH ×3 (06:37→21:48)
[2022-05-23] MEDS: BUPRENORPHINE/NALOXONE 4 MG/1 MG FILM PACKET SL SCH (06:37)
[2022-05-23] MEDS: MAGNESIUM HYDROX 2400MG/30ML ORAL SUSPENSION 30 ML CUP PO PRN (06:38)
[2022-05-23] MEDS: DIVALPROEX SODIUM 250 MG TABLET E.C. PO SCH ×2 (06:39→22:08)
[2022-05-23 07:31] VITALS: RESP 16
[2022-05-23] MEDS: hydrOXYzine PAMOATE 25 MG CAPSULE (FP) PO PRN ×2 (09:41→21:48)
[2022-05-23] MEDS: PRENATAL VITAMINS W/ FOLIC ACID TABLET (FP) PO SCH (09:41)
[2022-05-23] MEDS: CEPHALEXIN MONOHYDRATE 500 MG CAPSULE (UD) PO SCH ×2 (09:41→21:48)
[2022-05-23] MEDS: NICOTINE 10 MG CARTRIDGE (INHALER) IH PRN ×3 (09:43→21:48)
[2022-05-23] MEDS: NICOTINE 7 MG/24 HOURS TOPICAL PATCH TD SCH (09:44)
[2022-05-23] MEDS: LIDOCAINE 5% TOPICAL PATCH TP SCH (09:45)
[2022-05-23] MEDS: AMMONIUM LACTATE 12% LOTION 225 GM BOTTLE TP SCH (09:45)
[2022-05-23] MEDS: MELATONIN 5 MG TABLETS PO PRN (21:47)
[2022-05-23] MEDS: traZODone HCL 50 MG TABLET (FP) PO SCH (21:48)
[2022-05-23] MEDS: THIAMINE HCL 100 MG TABLET (FP) PO SCH (21:48)
[2022-05-23] MEDS: METHOCARBAMOL 500 MG TABLET PO PRN (21:48)
[2022-05-23] MEDS: LIDOCAINE PATCH REMOVAL MC SCH (21:58)
[2022-05-24] MEDS: MAGNESIUM HYDROX 2400MG/30ML ORAL SUSPENSION 30 ML CUP PO PRN (04:42)
[2022-05-24] MEDS: NICOTINE 10 MG CARTRIDGE (INHALER) IH PRN ×3 (06:00→21:34)
[2022-05-24] MEDS: busPIRone HCL 5 MG TABLET PO SCH ×3 (06:01→21:30)
[2022-05-24] MEDS: BUPRENORPHINE/NALOXONE 4 MG/1 MG FILM PACKET SL SCH (06:01)
[2022-05-24] MEDS: DIVALPROEX SODIUM 250 MG TABLET E.C. PO SCH ×2 (06:01→21:30)
[2022-05-24] MEDS: PRENATAL VITAMINS W/ FOLIC ACID TABLET (FP) PO SCH (09:45)
[2022-05-24] MEDS: CEPHALEXIN MONOHYDRATE 500 MG CAPSULE (UD) PO SCH ×2 (09:45→21:30)
[2022-05-24] MEDS: NICOTINE 7 MG/24 HOURS TOPICAL PATCH TD SCH (09:47)
[2022-05-24] MEDS: LIDOCAINE 5% TOPICAL PATCH TP SCH (09:49)
[2022-05-24] MEDS: AMMONIUM LACTATE 12% LOTION 225 GM BOTTLE TP SCH (10:03)
[2022-05-24] MEDS: hydrOXYzine PAMOATE 25 MG CAPSULE (FP) PO PRN ×2 (16:47→21:30)
[2022-05-24] MEDS: METHOCARBAMOL 500 MG TABLET PO PRN (21:30)
[2022-05-24] MEDS: THIAMINE HCL 100 MG TABLET (FP) PO SCH (21:30)
[2022-05-24] MEDS: traZODone HCL 50 MG TABLET (FP) PO SCH (21:30)
[2022-05-24] MEDS: LIDOCAINE PATCH REMOVAL MC SCH (21:30)
[2022-05-24] MEDS: MELATONIN 5 MG TABLETS PO PRN (21:32)
[2022-05-25] MEDS: BUPRENORPHINE/NALOXONE 4 MG/1 MG FILM PACKET SL SCH (06:13)
[2022-05-25] MEDS: NICOTINE 10 MG CARTRIDGE (INHALER) IH PRN (06:13)
[2022-05-25] MEDS: MAGNESIUM HYDROX 2400MG/30ML ORAL SUSPENSION 30 ML CUP PO PRN (06:13)
[2022-05-25] MEDS: busPIRone HCL 5 MG TABLET PO SCH (06:13)
[2022-05-25] MEDS: DIVALPROEX SODIUM 250 MG TABLET E.C. PO SCH (06:13)
[2022-05-25 07:20] VITALS: BP 101/56; PULSE 57; TEMP 96.5
[2022-05-25] MEDS: PRENATAL VITAMINS W/ FOLIC ACID TABLET (FP) PO SCH (09:46)
[2022-05-25] MEDS: NICOTINE 7 MG/24 HOURS TOPICAL PATCH TD SCH (09:46)
[2022-05-25] MEDS: LIDOCAINE 5% TOPICAL PATCH TP SCH (09:47)
[2022-05-25] MEDS: AMMONIUM LACTATE 12% LOTION 225 GM BOTTLE TP SCH (09:47)
[2022-05-25] MEDS: hydrOXYzine PAMOATE 25 MG CAPSULE (FP) PO PRN (09:48)
== END 2022-05-25 11:35 | disposition home or self-care (01) | DRG 772 ==
LOC: YASAS 13:22 → Y5N 13:23
PROVIDERS: ADMIT Allergy & Immunology; ATTEND Psychiatry & Neurology Pain Medicine
PROC: HZ42ZZZ Group Counseling for Substance Abuse Treatment, Cognitive-Behavioral (ICD-10-PCS; principal; 2022-04-28)
DX: F11.20 Opioid dependence, uncomplicated (principal); F14.20 Cocaine dependence, uncomplicated; F17.210 Nicotine dependence, cigarettes, uncomplicated; F19.282 Other psychoactive substance dependence with psychoactive substance-induced sleep disorder; F19.280 Other psychoactive substance dependence with psychoactive substance-induced anxiety disorder; F19.24 Other psychoactive substance dependence with psychoactive substance-induced mood disorder; F31.9 Bipolar disorder, unspecified; K74.60 Unspecified cirrhosis of liver; N39.0 Urinary tract infection, site not specified; Z86.19 Personal history of other infectious and parasitic diseases
CPT/HCPCS: 80164; 90677; G0008; Q2036

== ENCOUNTER 2022-05-17 17:39 | Emergency (ER) | payer OTHER ==
[2022-05-17 17:57] VITALS: BMI 29.9
[2022-05-17 20:45] LABS: EPI CELLS 21 /uL (0-25.1); HYALINE CASTS 0 /uL (0-3.1); PH,URINE 8.5 (5.0-8.0); URINE APPEARANCE CLEAR; URINE BACTERIA >9,000 /uL (0-1359); URINE BILIRUBIN NEGATIVE (NEGATIVE); URINE COLOR YELLOW; URINE GLUCOSE (UA) NEGATIVE (NEGATIVE); URINE KETONE NEGATIVE (NEGATIVE); URINE LEUK ESTERASE 1+ (NEGATIVE); URINE NITRITE POSITIVE (NEGATIVE); URINE PROTEIN NEGATIVE (NEGATIVE); URINE RBC 11 /uL (0-23.9); URINE WBC 21 /uL (0-25.8)
[2022-05-17 20:46] LABS: BASO % 0.7 % (0-2.0); EOS % 1.8 % (0-4.5); HEMATOCRIT 34.1 % (32.4-45.2); HEMOGLOBIN 11.6 GM/dL (10.7-15.3); LYMPH % 33.7 % (8-40); MCH 29.1 pg (25.7-33.7); MCHC 33.9 g/dl (32.0-36.0); MEAN CELL VOLUME 85.6 fl (80-96); MEAN PLT VOLUME 9.6 fl (7.5-11.1); MONO % 10.3 % (3.8-10.2); NEUT % 53.5 % (42.8-82.8); PLATELET COUNT 54 10^3/uL (134-434); RBC 3.98 M/mm3 (3.60-5.2); RDW 15.5 % (11.6-15.6); WHITE BLOOD COUNT 2.5 K/mm3 (4.0-10.0)
[2022-05-17 20:54] LABS: INR 1.2 (0.83-1.09); PROTHROMBIN TIME (PATIENT) 13.9 SEC (9.7-13.0)
[2022-05-17 21:16] LABS: CALCIUM 9.2 mg/dL (8.5-10.1)
[2022-05-17 21:17] LABS: ALBUMIN 3.5 g/dl (3.4-5.0); BLOOD UREA NITROGEN 26.2 mg/dL (7-18)
[2022-05-17 21:20] LABS: CREATININE 0.9 mg/dL (0.55-1.3)
[2022-05-17 21:21] LABS: TOT PROT 7.2 g/dl (6.4-8.2)
[2022-05-17 21:22] LABS: BILIRUBIN,TOTAL 0.5 mg/dL (0.2-1)
[2022-05-17 21:25] LABS: N-TERMINAL BNP 84.8 pg/ml (5-125)
[2022-05-17 21:36] VITALS: RESP 18
[2022-05-17] MEDS ORDERED: CEFTRIAXONE 1 GM in DEXTROSE 5%-WATER - 100 ML IVPB ONE (22:50)
[2022-05-17] MEDS ORDERED: CEFTRIAXONE 1 GM/50 ML BAG ONE (23:49)
[2022-05-17] MEDS ORDERED: CEPHALEXIN MONOHYDRATE 500 MG CAPSULE (UD) PO ONE (23:56)
[2022-05-17] MEDS ORDERED: PANTOPRAZOLE 20 MG TABLET PO ONE (23:56)
[2022-05-18] MEDS ORDERED: CEPHALEXIN MONOHYDRATE 500 MG CAPSULE (UD) ONE
[2022-05-18] MEDS ORDERED: PANTOPRAZOLE 20 MG TABLET PO ONE
[2022-05-18 00:59] VITALS: BP 116/69; PULSE 73; TEMP 98.7
== END 2022-05-18 01:20 | disposition home or self-care (01) ==
LOC: JER 17:39
DX: R10.84 Generalized abdominal pain (principal); K74.60 Unspecified cirrhosis of liver; R16.1 Splenomegaly, not elsewhere classified; N39.0 Urinary tract infection, site not specified
CPT/HCPCS: 36415; 74177-TC; 76705-TC; 80053; 81003; 83690; 83880; 84484; 85025; 85610; 85730; 87086; 87186; 93005; 93010; 99285-25; Q9967